=== PATIENT | male | born 1995 | race Caucasian/White ===

== ENCOUNTER 2018-09-04 18:05 | Emergency (ER) | payer OTHER, SELFPAY ==
[~2018-09-04] VITALS: Ht 165.1 cm; Wt 93.2 kg
[2018-09-04] MEDS ORDERED: IBUPROFEN 600 MG TAB PO ONE (18:30)
[2018-09-04 19:31] VITALS: BP 130/60
--- NOTE | 2018-09-05 08:28 | REP ---
RIGHT ANKLE, FOUR VIEWS: There is no evidence of an acute fracture, dislocation or intrinsic bone disease. IMPRESSION: No fracture or dislocation. Electronically Signed by Pop Carrion MD 09/06/2018 09:58 A
--- NOTE | 2018-09-05 08:29 | REP ---
RIGHT LOWER LEG, AP AND LATERAL: There is no evidence of an acute fracture, dislocation or intrinsic bone disease. IMPRESSION: No fracture or dislocation. Electronically Signed by Pop Carrion MD 09/06/2018 09:58 A
== END 2018-09-04 19:46 | disposition home or self-care (01) ==
LOC: M ED 18:05
DX: S93.401A Sprain of unspecified ligament of right ankle, initial encounter (principal); S50.311A Abrasion of right elbow, initial encounter; V29.9XXA Motorcycle rider (driver) (passenger) injured in unspecified traffic accident, initial encounter; Y92.9 Unspecified place or not applicable; Y93.9 Activity, unspecified; Y99.9 Unspecified external cause status; F41.9 Anxiety disorder, unspecified

== ENCOUNTER 2024-04-22 07:09 | Observation (INO) | payer OTHER, SELFPAY ==
[~2024-04-22] VITALS: Ht 162.6 cm; Wt 102.3 kg
[2024-04-22] MEDS ORDERED: ALPR1TAB3 PO (07:22)
[2024-04-22] MEDS: ONDANSETRON 4MG 2ML VIAL IV ONE (09:03)
[2024-04-22] MEDS: LORazepam 2 MG/ML 1ML VIAL IV STA (09:03)
[2024-04-22] MEDS: KETOROLAC 30 MG/ML 1ML VIAL IV ONE (09:04)
[2024-04-22 09:20] LABS: BASO # 0.1 10^3/uL (0.0-0.2); BASO % 0.3 % (0.0-1.0); EOS % 0.1 % (0.0-3.0); HEMATOCRIT 47.7 % (42.0-52.0); HEMOGLOBIN 16.3 g/dl (13.5-17.5); LYMPH # 0.7 10^3/uL (1.5-5.0); LYMPH % 2.9 % (24.0-44.0); MEAN CORPUSCULAR HEMOGLOBIN 30.3 pg (27.0-33.0); MEAN CORPUSCULAR HGB CONC 34.2 g/dl (32.0-36.5); MEAN CORPUSCULAR VOLUME 88.7 fl (80.0-96.0); MONO # 0.9 10^3/uL (0.0-0.8); NEUTROPHILS # 20.5 10^3/uL (1.5-8.5); NEUTROPHILS % 92.1 % (36.0-66.0); PLATELET COUNT, AUTOMATED 320 10^3/uL (150-450); RED BLOOD COUNT 5.38 10^6/uL (4.30-6.10); WHITE BLOOD COUNT 22.2 10^3/uL (4.0-10.0)
[2024-04-22 09:48] LABS: CK-MB VALUE MASS < 1.0 NG/ML (<3.6); LIPASE 29 U/L (12-53)
[2024-04-22 09:50] LABS: CPK CREATINE PHOSPHOKINASE 109 U/L (46-171); MB/CK RELATIVE INDEX 0.91 (< OR =4)
[2024-04-22 09:51] LABS: ALBUMIN 4.3 G/DL (3.2-5.2); ALKALINE PHOSPHATASE 83 U/L (40-129); ALT/SGPT 59 U/L (7.0-40); AST/SGOT 26 U/L (<34); BILIRUBIN,DIRECT 0.4 MG/DL (<0.4); BILIRUBIN,TOTAL 1.7 MG/DL (0.3-1.2); BLOOD UREA NITROGEN 24 MG/DL (9-23); CALCIUM LEVEL 9.5 MG/DL (8.5-10.1); CARBON DIOXIDE LEVEL 24 MMOL/L (20-31); CHLORIDE LEVEL 107 MMOL/L (98-107); CREATININE FOR GFR 0.71 MG/DL (0.70-1.30); GLOMERULAR FILTRATION RATE > 60.0 (>60); GLUCOSE, FASTING 130 MG/DL (60-100); POTASSIUM SERUM 4.7 MMOL/L (3.5-5.1); SODIUM LEVEL 140 MMOL/L (136-145); TOTAL PROTEIN 7.7 G/DL (5.7-8.2)
[2024-04-22 10:18] LABS: CPK CREATINE PHOSPHOKINASE 106 U/L (46-171)
[2024-04-22 10:19] LABS: CK-MB VALUE MASS < 1.0 NG/ML (<3.6); MB/CK RELATIVE INDEX 0.94 (< OR =4)
[2024-04-22] MEDS: PIPERACILLIN/TAZOBACTAM SOD 3.375 GM in DEXTROSE 5% (D5W) ADV/MINI-BAG 50 ML IV ONE (10:25)
[2024-04-22] MEDS: NS (Normal Saline) 0.9% 1,000 ML IV ONE ×2 (10:35→15:50)
[2024-04-22] MEDS ORDERED: ISOVUE-370 76% 100ML VIAL As Ordered ONE (10:52)
[2024-04-22] MEDS ORDERED: HOME MED LIST COMPLETE! XX SCH (11:30)
[2024-04-22 12:15] LABS: KETONE, URINE AUTO RFX NEGATIVE (NEGATIVE); LEUKOCYTE ESTERASE UR AUTO RFX NEGATIVE (NEGATIVE); MUCUS, URINE RFX SMALL (NEGATIVE); NITRITE, URINE AUTO RFX NEGATIVE (NEGATIVE); RBC, URINE AUTO RFX 0 /HPF (0-3); SQUAM EPITHELIAL CELL UR AURFX 0 /HPF (0-6); WBC, URINE AUTO RFX 0 /HPF (0-3)
[2024-04-22 12:17] LABS: HEMATOCRIT 46.7 % (42.0-52.0); HEMOGLOBIN 15.7 g/dl (13.5-17.5); MEAN CORPUSCULAR HEMOGLOBIN 30.3 pg (27.0-33.0); MEAN CORPUSCULAR HGB CONC 33.6 g/dl (32.0-36.5); MEAN CORPUSCULAR VOLUME 90.2 fl (80.0-96.0); PLATELET COUNT, AUTOMATED 297 10^3/uL (150-450); RED BLOOD COUNT 5.18 10^6/uL (4.30-6.10); WHITE BLOOD COUNT 18.6 10^3/uL (4.0-10.0)
[2024-04-22 12:50] LABS: ATYPICAL LYMPH 4 % (0-5); BASOPHILS 1 % (0-1); LYMPHOCYTES 1 % (16-44); MONOCYTES 3 % (0-5); NEUTROPHILS 83 % (28-66)
[2024-04-22 12:51] LABS: PLATELET ESTIMATE NORMAL (NORMAL)
[2024-04-22] MEDS: SUCRALFATE SUSP 1GM/10ML UD PO SCH (15:50)
[2024-04-22] MEDS ORDERED: DICYCLOMINE 10 MG CAP PO PRN (15:50)
[2024-04-22] MEDS ORDERED: ALPRAZolam 0.5 MG TAB PO PRN (15:50)
[2024-04-22] MEDS ORDERED: ONDANSETRON 4MG 2ML VIAL IV PRN (15:50)
[2024-04-22 16:54] LABS: BASO % 0.2 % (0.0-1.0); EOS % 0.1 % (0.0-3.0); HEMATOCRIT 45.9 % (42.0-52.0); HEMOGLOBIN 15.2 g/dl (13.5-17.5); LYMPH # 0.8 10^3/uL (1.5-5.0); LYMPH % 4.5 % (24.0-44.0); MEAN CORPUSCULAR HEMOGLOBIN 30.1 pg (27.0-33.0); MEAN CORPUSCULAR HGB CONC 33.1 g/dl (32.0-36.5); MEAN CORPUSCULAR VOLUME 90.9 fl (80.0-96.0); MONO # 0.7 10^3/uL (0.0-0.8); NEUTROPHILS # 15.7 10^3/uL (1.5-8.5); NEUTROPHILS % 90.6 % (36.0-66.0); PLATELET COUNT, AUTOMATED 322 10^3/uL (150-450); RED BLOOD COUNT 5.05 10^6/uL (4.30-6.10); WHITE BLOOD COUNT 17.3 10^3/uL (4.0-10.0)
[2024-04-22] MEDS ORDERED: PIPERACILLIN/TAZOBACTAM SOD 3.375 GM in DEXTROSE 5% (D5W) ADV/MINI-BAG 50 ML IV SCH (17:00)
[2024-04-22] MEDS: LACTOBACILLUS ACIDOPHILUS CAP (BACID) PO SCH (17:51)
[2024-04-22 18:31] VITALS: BP 160/80; TEMP 100.4; O2SAT 100
[2024-04-22] MEDS: NS (Normal Saline) 0.9% 1,000 ML IV SCH (18:38)
[2024-04-22 19:44] VITALS: BP 127/72; TEMP 101.4; O2SAT 99
[2024-04-22] MEDS: ACETAMINOPHEN 325 MG TAB PO PRN (19:57)
[2024-04-22] MEDS: PANTOPRAZOLE 40MG VIAL IV SCH (19:57)
[2024-04-22 21:13] VITALS: TEMP 99.9
[2024-04-22 23:12] VITALS: BP 124/60; TEMP 99.9; O2SAT 97
[2024-04-23 03:17] VITALS: BP 119/60; TEMP 99.7; O2SAT 96
[2024-04-23 05:34] LABS: BASO % 0.3 % (0.0-1.0); EOS # 0.1 10^3/uL (0.0-0.5); EOS % 0.6 % (0.0-3.0); HEMATOCRIT 39.5 % (42.0-52.0); LYMPH # 1.3 10^3/uL (1.5-5.0); LYMPH % 12.4 % (24.0-44.0); MEAN CORPUSCULAR HEMOGLOBIN 29.6 pg (27.0-33.0); MEAN CORPUSCULAR HGB CONC 33.2 g/dl (32.0-36.5); MEAN CORPUSCULAR VOLUME 89.4 fl (80.0-96.0); MONO # 0.9 10^3/uL (0.0-0.8); NEUTROPHILS # 7.8 10^3/uL (1.5-8.5); NEUTROPHILS % 77.2 % (36.0-66.0); PLATELET COUNT, AUTOMATED 234 10^3/uL (150-450); RED BLOOD COUNT 4.42 10^6/uL (4.30-6.10); WHITE BLOOD COUNT 10.1 10^3/uL (4.0-10.0)
[2024-04-23 05:37] LABS: HEMOGLOBIN 13.1 g/dl (13.5-17.5)
[2024-04-23 05:48] LABS: ALBUMIN 3.1 G/DL (3.2-5.2); ALKALINE PHOSPHATASE 60 U/L (40-129); ALT/SGPT 37 U/L (7.0-40); AST/SGOT 17 U/L (<34); BILIRUBIN,TOTAL 1.2 MG/DL (0.3-1.2); BLOOD UREA NITROGEN 12 MG/DL (9-23); CALCIUM LEVEL 8.1 MG/DL (8.5-10.1); CARBON DIOXIDE LEVEL 24 MMOL/L (20-31); CHLORIDE LEVEL 109 MMOL/L (98-107); CREATININE FOR GFR 0.65 MG/DL (0.70-1.30); GLOMERULAR FILTRATION RATE > 60.0 (>60); GLUCOSE, FASTING 95 MG/DL (60-100); MAGNESIUM LEVEL 1.7 MG/DL (1.8-2.4); POTASSIUM SERUM 3.9 MMOL/L (3.5-5.1); SODIUM LEVEL 141 MMOL/L (136-145); TOTAL PROTEIN 5.9 G/DL (5.7-8.2)
[2024-04-23] MEDS: ENOXAPARIN 40MG/0.4ML SYRINGE (J1650 PER 10MG) SC SCH (08:00)
[2024-04-23] MEDS: MAG SULF 1GM/100ML (MAG RUN) 1 GM in IV 1 EA IV ONE (08:00)
[2024-04-23 08:09] VITALS: BP 139/74; TEMP 98.7; O2SAT 96
[2024-04-23] MEDS ORDERED: OMEP40CA4 PO (09:02)
[2024-04-23] MEDS ORDERED: RISATAB3 PO (09:02)
== END 2024-04-23 11:23 | disposition home or self-care (01) ==
LOC: M ED 07:09 → M ED INP 07:10 → M PCU 18:22
PROVIDERS: ADMIT Internal Medicine; ATTEND Internal Medicine
DX: A08.11 Acute gastroenteropathy due to Norwalk agent (principal); R07.89 Other chest pain; E87.20 Acidosis, unspecified; E86.0 Dehydration; R00.0 Tachycardia, unspecified; F41.9 Anxiety disorder, unspecified; D72.829 Elevated white blood cell count, unspecified; R11.2 Nausea with vomiting, unspecified; R19.7 Diarrhea, unspecified; Z79.899 Other long term (current) drug therapy
CPT/HCPCS: 36415; 71046; 74177; 80048; 80053; 80076; 81001; 82550; 82553; 83605; 83690; 83735; 84145; 84484; 85025; 85379; 87040; 87507; 93005; 93041; 96361; 96365; 96366; 96375; 96376; 99285; J1650; J1885; J2060; J2405; J2470; J2543; J3475; Q9967